=== PATIENT | female | born 1930 | race Caucasian/White ===

== ENCOUNTER 2016-07-04 01:29 | Inpatient (IN) | payer MEDICARE, MEDICAID ==
[2016-07-04] MEDS ORDERED: IOPAMIDOL 370 (76%) 100 ML VIAL IV ONE (01:30)
[2016-07-04 02:04] LABS: ABSOLUTE NEUTROPHIL COUNT 13.6 K/mm3 (1.8-7.7); BASO % 0.2 % (0.2-1.0); EOS # 0.1 (0.0-0.5); EOS % 0.3 % (0.9-2.9); HEMOGLOBIN 11.1 gm/l (12.0-16.0); IMM NEUT # 0.3 K/mm3 (0-0.2); IMM NEUT% 1.6 % (0-1); LYMPH # 0.6 (1.0-4.8); LYMPH % 3.8 % (15-45); MEAN CORPUSCULAR HGB CONC 32.6 g/dl (33.0-37.0); MEAN PLATELET VOLUME 9.9 fl (7.4-10.4); MONO # 0.8 (0.0-0.8); MONO % 5.5 % (4-12); NEUT % 88.6 % (43-75); PLATELET COUNT 112 K/mm3 (130-400); RED CELL DISTRIBUTION WIDTH 13.5 % (11.5-14.5)
[2016-07-04 02:15] LABS: SPECIFIC GRAVITY 1.015 (1.001-1.030); URINE BILIRUBIN NEGATIVE (NEGATIVE); URINE BLOOD 4+ (NEGATIVE); URINE GLUCOSE (UA) NEGATIVE (NEGATIVE); URINE LEUKOCYTE ESTERASE 1+ (NEGATIVE); URINE NITRITE POSITIVE (NEGATIVE); URINE PROTEIN 1+ (NEGATIVE); URINE UROBILINOGEN NORMAL (0-1 mg/dl)
[2016-07-04 02:19] LABS: URINE APPEARANCE TURBID; URINE COLOR YELLOW
[2016-07-04 02:21] LABS: URINE BACTERIA 4+; URINE RBC >100 /hpf; URINE WBC 40-50 /hpf
[2016-07-04 02:25] LABS: ALB/GLOB RATIO 0.9 (>1.0); ALBUMIN 3.2 gm/dL (3.5-5.7); CALCIUM 9.6 mg/dL (8.6-10.3)
[2016-07-04 02:41] LABS: TOTAL CELLS COUNTED 100
[2016-07-04 02:42] LABS: BAND 8 % (0-10); BASOPHIL 0 % (0-1); EOSINOPHIL 1 % (1-3); LYMPHOCYTE 4 % (15-45); MONOCYTE 3 % (4-12); NEUTROPHILS 84 % (43-75); PLATELET ESTIMATE NORMAL (NORMAL)
[2016-07-04] MEDS ORDERED: SODIUM CHLORIDE 0.9% 1,000 ML ONE (02:49)
[2016-07-04] MEDS ORDERED: LEVOFLOXACIN 750 MG/D5W 150 ML 150 ML IV ONE (02:49)
[2016-07-04] MEDS ORDERED: MENTHOL/CETYLPYRD 1 EACH LOZENGE PO PRN (07:55)
[2016-07-04] MEDS ORDERED: BLISTEX LIPSTICK 1 EACH TP PRN (07:55)
[2016-07-04] MEDS ORDERED: ACETAMINOPHEN 325 MG TABLET PO PRN (07:55)
[2016-07-04] MEDS ORDERED: MAGNESIUM HYDROXIDE 30 ML UDCUP PO PRN (07:55)
[2016-07-04] MEDS ORDERED: SODIUM CHLORIDE 0.9% 100 ML IV PRN (07:55)
[2016-07-04] MEDS ORDERED: ALBUTEROL SULFATE MDI 60 PUFFS/INHALER IH PRN (08:00)
[2016-07-04] MEDS ORDERED: HYDROCODONE/ACETAMINOPHEN 5/325MG TABLET PO PRN (08:00)
--- NOTE | 2016-07-04 08:07 | CT ---
HEAD W/O CON COMPARISON: Head CT without contrast, 02/28/2015 HISTORY: 85-year-old female with frequent falls and a history of dementia. TECHNIQUE: Using a [employer] Aquilion [address] scanner, images were obtained through the head. An automated dose reduction technique was used to minimize patient radiation dose. DOSE INFORMATION: CTDIvol (mGy): 51.70 DLP(mGycm): 928.60 FINDINGS: Mass: None Intracranial Hemorrhage: None Acute Infarction: None Cerebral hemispheres: No change. Marked atrophy. Low-attenuation in the white matter. Basal ganglia: Normal Thalami: No change. Subcentimeter old lacunar infarcts in both thalami. Brainstem: Normal Cerebellum: Normal Ventricles: Ex vacuo enlargement. Basilar cisterns: Normal Corpus callosum: Normal Pituitary fossa: Empty sella. Middle ears and mastoid air cells: Normal Orbits and sinuses: No acute finding. Bilateral aphakia. Skull and scalp: Normal Dural sinuses and vessels: Normal IMPRESSION: 1. No change compared to 02/28/2015. No intracranial hemorrhage or depressed skull fracture. 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 Preliminary report by [facility] radiologist Elsa Narayan MD 07/04/2016 at 03:57
--- NOTE | 2016-07-04 08:10 | CT ---
C-SPINE W/O CON COMPARISON: CT cervical spine, 09/24/2010 HISTORY: Multiple falls. Neck injury. Technique: Using a [employer] Aquilion [address] scanner, images obtained through the cervical spine. An automated dose reduction technique was used to minimize patient radiation dose. Dose information: CTDIvol (mGy) 10.40 DLP(mGycm): 202.60 FINDINGS: Vertebral alignment: Normal. C1-2 alignment: Normal. Craniocervical junction: Normal. Vertebral bodies: No acute finding. Disc marginal osteophytes at C5-6 and C6-7. Intervertebral discs: Narrowing, mild at C4-5 and C5-6, severe at C6-7. Spinal canal: Normal. Facet joints and posterior arches: On the left, facet joint narrowing and osteophytes at C2-3, C3-4, C4-5, and C5-6. On the left, narrowing and osteophytes at C3-4, C4-5, C5-6, and C6-7. Prevertebral soft tissues: Normal Lung apices and superior mediastinum: Normal. Airway: Normal. IMPRESSION: 1. No fracture or dislocation. 2. Multilevel facet osteoarthritis and spondylosis. Preliminary report by [facility] radiologist Elsa Narayan MD, 07/04/2016 at 03:57
--- NOTE | 2016-07-04 08:30 | CT ---
ABD/PELVIS W/ CON, CHEST W/ CON COMPARISON: Pelvis one view 02/28/2015. CT abdomen and pelvis 11/08/2013 HISTORY: Multiple falls. Dementia. Left rib cage pain. Technique: No oral contrast. Intravenous injection 100 mL Isovue 370. Using a [employer] Aquilion [address] scanner, images were obtained through the chest, abdomen, and pelvis. An automated dose reduction technique was used to minimize patient radiation dose. Dose information: CTDIvol (mGy): 11.50 DLP(mGycm): 776.00 FINDINGS (chest with contrast): Lungs: Severe emphysema. In the lateral left upper lobe on axial image 25, 3.8 mm peripheral noncalcified nodule. Trachea and bronchi: Normal. Heart and vessels: Atherosclerotic calcific plaquing of the coronary arteries. Calcific plaquing and elongation of the thoracic aorta. Mediastinum and ashok: Normal. Esophagus: Normal. Pleura and pericardium: Normal. Chest wall and bones: Note chest wall swelling or hematoma. Minimally displaced fracture anterior left rib 6. Decreased mineralization of the bones. Left shoulder replacement with chronic proximal humerus fracture.. FINDINGS (abdomen and pelvis with contrast): Liver: Moderate intrahepatic bile duct dilation. Normal enhancement. Gallbladder: Cholecystectomy. Bile ducts: Chronically dilated extrahepatic bile ducts up to 21 mm, without calcified obstructing stone and no evidence of a mass in the head of the pancreas. Pancreas: Atrophy. Spleen: Normal. Adrenal glands: Normal. Kidneys: No change. Multiple stones in the right renal collecting system, the largest up to 2.3 x 1.5 cm in the right renal pelvis. No obstructive hydronephrosis. Marked atrophy of the left kidney. Ureters: Normal Urinary bladder: Normal. Uterus and adnexa: Hysterectomy. Blood vessels: Severe atherosclerosis of the abdominal aorta and its branches in the abdomen and the pelvis. Lymph nodes: Mildly enlarged retroperitoneal right pericaval lymph nodes at the level of the right kidney, up to 11 mm. Stomach: Normal Duodenum: Normal Small intestine: Normal Appendix: Normal Colon: Normal Abdominal wall and supporting musculature: Normal Bones: No fracture bone destruction. Scoliosis and degenerative changes of the spine. IMPRESSION: 1. Severe emphysema. 2. 3.8 mm peripheral noncalcified nodule in the left upper lobe. No follow-up is recommended. 3. Left shoulder replacement with chronic fracture. 4. Minimally displaced fracture, anterior left ribs 6, acute versus chronic. 5. Chronic moderate to marked intra and extra hepatic biliary dilatation after cholecystectomy. This could be a postoperative finding. Check for laboratory evidence of biliary obstruction. 6. No change in the kidneys, with multiple nonobstructing right renal calculi and atrophy of the left kidney. 7. No change in mildly enlarged right pericaval retroperitoneal lymph node at 11 mm at the level of the right kidney. Preliminary report by [facility] radiologist Elsa Narayan MD 07/04/2016 at 03:57
[2016-07-04] MEDS ORDERED: HYDROCODONE/ACETAMINOPHEN 5/325MG TABLET PO SCH ×2 (09:00→16:30)
[2016-07-04] MEDS ORDERED: PUMP TUBING ONE (09:21)
[2016-07-04] MEDS: SODIUM CHLORIDE 0.9% 1,000 ML IV SCH ×2 (09:27→17:51)
[2016-07-04] MEDS: ASCORBIC ACID 500 MG TABLET PO SCH ×3 (09:27→22:04)
[2016-07-04] MEDS: FERROUS GLUCONATE (38 Fe) 324 MG TABLET PO SCH ×3 (09:27→22:04)
[2016-07-04] MEDS: ASPIRIN (ENTERIC COATED) 81 MG TABLET.EC PO SCH (09:28)
[2016-07-04] MEDS: PREGABALIN 75 MG CAP PO SCH ×3 (09:28→22:04)
[2016-07-04] MEDS: PANTOPRAZOLE 40 MG TABLET DR PO SCH (09:28)
[2016-07-04] MEDS: FLUTICASONE/SALMETEROL 250/50 14 PUFFS/DISK IH SCH ×2 (09:28→22:03)
[2016-07-04] MEDS: DOCUSATE SODIUM 100 MG CAPSULE PO SCH ×2 (09:28→22:05)
[2016-07-04] MEDS ORDERED: IV START KIT ONE (09:50)
--- NOTE | 2016-07-04 10:10 | HP ---
BLAKE URBINA [id number] : 1930 DATE OF ADMISSION: July 04, 2016 IDENTIFICATION: Ms. Urbina is an 85-year-old followed by Dr. Lara. CHIEF COMPLAINT: Fell multiple times. HISTORY OF PRESENT ILLNESS: Patient is a resident of [facility] in [place]. She had several falls yesterday and was found down and unable to get up. She was brought to [facility] Emergency Room where she was found to have a urinary tract infection as well as an acute left sixth rib fracture. Patient is demented and cannot provide much history. History is from the emergency room record and previous records. REVIEW OF SYSTEMS: She is not reliable. Denies chest pain or shortness of breath. Does endorse dysuria and reluctantly states that she may have fallen yesterday. PAST MEDICAL HISTORY: 1. Dementia with behavioral disturbance described as aggressive and argumentative. 2. Chronic obstructive pulmonary disease. 3. Obesity with obstructive sleep apnea and chronic respiratory failure. I believe she requires oxygen when sleeping. 4. Depression. 5. 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 6. Gastroesophageal reflux disease. 7. Hyperlipidemia. 8. Hypertension. 9. Osteoarthritis. 10. Chronic kidney disease stage 3. Baseline creatinine appears to be about 1.1. PAST SURGICAL HISTORY: 1. Right knee arthroscopy in 2005. 2. Bilateral cataract surgeries with subsequent laser treatment. 3. Cholecystectomy in 1981. 4. Humeral head replacement in 1995. 5. Total abdominal hysterectomy and bilateral salpingo-oophorectomy in 1956. 6. Lumbar surgery times two in the . 7. Total left knee arthroplasty in 2007. 8. Total right knee arthroplasty. 9. History of right arm fracture. 10. History of fracture and dislocation of the left arm. 11. Endoscopy in 2011 showing diverticulosis showing mild gastritis and duodenitis. ALLERGIES: REPORTED TO: 1. PENICILLIN. 2. SULFA. 3. CODEINE. MEDICATIONS: 1. Lyrica 75 mg orally three times daily. 2. Omeprazole 20 mg orally twice daily. 3. Lovastatin 40 mg orally nightly. 4. Lidocaine patches one daily. 5. Hydrocortisone 1% cream topically three times daily as needed. 6. Hydrocodone with acetaminophen 5/325 one scheduled twice a day and one every four hours as needed. 7. Advair 250/50 one puff twice daily. 8. Ferrous gluconate 325 mg orally three times daily. 9. Ascorbic acid 500 mg orally three times daily with the iron. 10. Vitamin B12 injections 1000 mcg monthly. 11. Cranberry extract 500 mg daily. 12. Aspirin 81 mg daily. 13. Albuterol inhaler two puffs every three hours as needed. 14. Acetaminophen 650 mg orally every four hours as needed. HABITS: No tobacco or drugs. She does have a prior smoking history but quit over ten years ago. SOCIAL HISTORY: She is but her lives in [place], and she is a resident of the [facility] in [place]. She has a POLST form which indicates DO NOT ATTEMPT RESUSCITATION and limited additional interventions. No artificial nutrition by tube. This was signed by Dr. Lara, July 31, 2013. FAMILY HISTORY: Mother at age 84 of dementia and osteoporosis. Her father of prostate and bladder cancer. She has a child with Marfan's syndrome, child with cervical cancer and asthma, and a child with alcoholism. PHYSICAL EXAMINATION: GENERAL: This is a somewhat uncooperative, disoriented elderly woman. VITAL SIGNS: Temperature 97.8 degrees Fahrenheit, pulse 86, blood pressure 138/78, respiratory rate 20, oxygen saturation 93% on room air. HEENT: Pupils are equal, round and reactive status post cataract surgery. Oropharynx is dry. CHEST: Clear to auscultation but tender to palpation over the left lateral aspect. HEART: Is regular. ABDOMEN: Is soft with suprapubic tenderness. No guarding or rebound. Normal bowel tones. No organomegaly. EXTREMITIES: Moderate peripheral pulses. No cyanosis, clubbing or edema. NEUROLOGIC: Patient is disoriented, moving all extremities equally. LABORATORY DATA: White blood cell count is 15.3, hemoglobin and hematocrit 11.1 and 34.0, platelets 112. Sodium 137, potassium 3.7, chloride 101, CO2 26, BUN 39, creatinine 1.4, glucose 144, alkaline phosphatase is 112, creatinine kinase 533, troponin I is 0.01, albumin is 3.2. Urinalysis specific gravity 1.015, 1+ protein, 4+ blood, positive nitrite, positive leukocyte esterase. Microscopic, greater than 100 red blood cells, 40 to 50 white blood cells, 4+ bacteria. Urine and blood cultures have been set up. RADIOLOGY: 1. CT scan of the head, no intracranial mass, edema or fracture. There is periventricular chronic small vessel ischemic changes and volume loss. 2. CT scan of the cervical spine, no fracture or malalignment. 3. CT scan of the chest, mild to moderate emphysema. Mild lower lung bronchial markings, post left shoulder arthroplasty and left sixth rib fracture. 4. CT abdomen and pelvis, marked intra and extrahepatic biliary dilatation, scoliosis, tortuous aorta, large right renal pelvis stone. ASSESSMENT: Ms. Urbina is a demented 85-year-old who presents with urinary tract infection presumed bacterial. She has severe sepsis secondary to the urinary tract infection with acute kidney injury and acute mild rhabdomyolysis. She has nephrolithiasis which likely contributes to her history of recurrent urinary tract infections. She has chronic obstructive pulmonary disease not currently requiring oxygen but also obesity with obstructive sleep apnea and obesity hypoventilation and chronic respiratory failure requiring oxygen with sleep. She has diabetes complicated by chronic kidney disease and peripheral neuropathy. PLAN: 1. Admit to medical/surgical floor. 2. Treatment with intravenous levofloxacin for the urinary tract infection. 3. Fluid hydration and follow renal function and CPK. 4. Diabetic diet and check blood sugars before meals and at bedtime. 5. DO NOT RESUSCITATE status. 6. Venous thrombosis prophylaxis with mechanical means. Pharmacologic is contraindicated with her thrombocytopenia. 7. Further care as indicated by clinical course.
[2016-07-04] MEDS: HYDROCODONE/ACETAMINOPHEN 5/325MG TABLET PO PRN (16:43)
[2016-07-04 16:49] VITALS: BMI 27.3
[2016-07-04] MEDS: LOVASTATIN 20 MG TABLET PO SCH (19:37)
[2016-07-04] MEDS ORDERED: CEFTRIAXONE 1 GRAM DUPLEX 50 ML IV ONE (21:50)
[2016-07-04] MEDS: CEFTRIAXONE 1 GRAM DUPLEX 1 G in Premix (D5W) 50 ml 1 EACH IV SCH (22:03)
[2016-07-05] MEDS: SODIUM CHLORIDE 0.9% 1,000 ML IV SCH ×2 (02:38→09:04)
[2016-07-05] MEDS: HYDROCODONE/ACETAMINOPHEN 5/325MG TABLET PO PRN (03:01)
[2016-07-05 05:35] LABS: ABSOLUTE NEUTROPHIL COUNT 6.8 K/mm3 (1.8-7.7); BASO % 0.3 % (0.2-1.0); EOS # 0.1 (0.0-0.5); HEMATOCRIT 29.7 % (37.0-47.0); HEMOGLOBIN 9.6 gm/l (12.0-16.0); IMM NEUT # 0.1 K/mm3 (0-0.2); IMM NEUT% 0.6 % (0-1); LYMPH # 0.5 (1.0-4.8); LYMPH % 6.3 % (15-45); MEAN CELL VOLUME 95.2 fl (81.0-99.0); MEAN CORPUSCULAR HEMOGLOBIN 30.8 pg (27.0-31.0); MEAN CORPUSCULAR HGB CONC 32.3 g/dl (33.0-37.0); MEAN PLATELET VOLUME 10.4 fl (7.4-10.4); MONO # 0.4 (0.0-0.8); MONO % 5.1 % (4-12); NEUT % 86.7 % (43-75); PLATELET COUNT 106 K/mm3 (130-400); RED CELL DISTRIBUTION WIDTH 13.4 % (11.5-14.5)
[2016-07-05 05:56] LABS: CALCIUM 8.8 mg/dL (8.6-10.3)
[2016-07-05 06:57] LABS: BAND 7 % (0-10); BASOPHIL 0 % (0-1); EOSINOPHIL 3 % (1-3); LYMPHOCYTE 4 % (15-45); MONOCYTE 2 % (4-12); NEUTROPHILS 84 % (43-75); PLATELET ESTIMATE DECREASED (NORMAL); TOTAL CELLS COUNTED 100
[2016-07-05] MEDS: FERROUS GLUCONATE (38 Fe) 324 MG TABLET PO SCH ×3 (09:03→21:32)
[2016-07-05] MEDS: PANTOPRAZOLE 40 MG TABLET DR PO SCH (09:03)
[2016-07-05] MEDS: ASPIRIN (ENTERIC COATED) 81 MG TABLET.EC PO SCH (09:04)
[2016-07-05] MEDS: FLUTICASONE/SALMETEROL 250/50 14 PUFFS/DISK IH SCH ×2 (09:04→21:34)
[2016-07-05] MEDS: PREGABALIN 75 MG CAP PO SCH ×3 (09:04→21:33)
[2016-07-05] MEDS: ASCORBIC ACID 500 MG TABLET PO SCH ×3 (09:04→21:33)
[2016-07-05] MEDS: DOCUSATE SODIUM 100 MG CAPSULE PO SCH ×2 (09:04→21:33)
--- NOTE | 2016-07-05 13:28 | PDOC43 ---
- Subjective Chief Complaint: GLF, dementia, recurrent UTI Feels good this AM. No c/o's. Subjective: Reports Pain Tolerable, Reports Tolerating Diet Well, Denies Shortness of Breath, Denies Cough, Denies Chest Pain, Denies Abdominal Pain, Denies Nausea, Denies Vomiting, Denies Fever, Denies Chills - Objective Vital Signs Temperature 97.7 F 07/05/16 07:29 Pulse Rate 76 07/05/16 07:29 Respiratory Rate 16 07/05/16 07:29 Blood Pressure 116/67 07/05/16 07:29 O2 Saturation by Pulse Oximetry 91 07/05/16 07:29 Oxygen Delivery Method Room Air Oxygen Flow Rate 0 Intake and Output 07/04/16 07/05/16 07/06/16 06:59 06:59 06:59 Intake Total 1611 Output Total 881 350 Balance 730 -350 General: Alert, Cooperative, No Acute Distress HEENT: Atraumatic Lungs: Clear to Auscultation Bilaterally Abdomen: Soft, Normal Bowel Sounds, Non-Distended, No Tenderness Extremities: Normal Pulses, No Edema Laboratory 07/05/16 05:15 07/05/16 05:15 Microbiology 07/04/16 02:00 Urine,Catheterized Urine Culture - Final Escherichia Coli 07/04/16 07/05/16 01:54 05:15 Creatine Kinase 533 H 296 H Current Medications: Current meds reviewed in EMR. - Problems: Assessment/Plan (1) UTI (lower urinary tract infection) Status: AcuteAssessment/Plan: POA, recurrent associated with large R sided renal stone. E. coli resistant to FQ's and amp on cx. Initial blood cx with gnr's- final pending. Changed abx to Rocephin on PM 2. Initial admit note indicated sepsis, but pt did not meet criteria for sepsis. Con't current tx. (2) Fall Status: AcuteAssessment/Plan: Multiple GLF's recently. L 6th rib fx noted at admit. PT/OT to see. Supportive care. (3) Rhabdomyolysis Status: AcuteAssessment/Plan: Mild, presumed related to falls above. (4) Dementia Qualifiers: Dementia type: unspecified type Dementia behavioral disturbance: with behavioral disturbance Qualifier Code: (F03.91) Unspecified dementia with behavioral disturbance Status: ChronicAssessment/Plan: Long standing with behavioral disturbance as per chart. Supportive care. (5) -Diabetes mellitus type 2 Status: ChronicAssessment/Plan: Stable. Con't current tx. (6) CKD (chronic kidney disease) stage 3, GFR 30-59 ml/min Status: ChronicAssessment/Plan: Appears at baseline. (7) COPD (chronic obstructive pulmonary disease) Qualifiers: COPD type: unspecified COPD Qualifier Code: (J44.9) Chronic obstructive pulmonary disease, unspecified Status: ChronicAssessment/Plan: With chronic resp failure requiring O2 at [facility] at baseline. VTE Prophylaxis: Mechanical only d/t thrombocytopenia and frequent falls.
[2016-07-05] MEDS ORDERED: FLUTICASONE/SALMETEROL 250/50 14 PUFFS/DISK IH SCH (14:15)
[2016-07-05] MEDS: LOVASTATIN 20 MG TABLET PO SCH (21:33)
[2016-07-05] MEDS: CEFTRIAXONE 1 GRAM DUPLEX 1 G in Premix (D5W) 50 ml 1 EACH IV SCH (21:34)
[2016-07-06] MEDS ORDERED: LEVOFLOXACIN 750 MG/D5W 150 ML 750 MG in Premix (D5W) 150 ml Bag 1 EACH IV SCH (03:00)
[2016-07-06 05:46] LABS: HEMATOCRIT 31.5 % (37.0-47.0); HEMOGLOBIN 10.1 gm/l (12.0-16.0); MEAN CELL VOLUME 94.9 fl (81.0-99.0); MEAN CORPUSCULAR HEMOGLOBIN 30.4 pg (27.0-31.0); MEAN CORPUSCULAR HGB CONC 32.1 g/dl (33.0-37.0); RED CELL DISTRIBUTION WIDTH 13.6 % (11.5-14.5)
[2016-07-06 06:15] LABS: ALB/GLOB RATIO 0.8 (>1.0); ALBUMIN 2.6 gm/dL (3.5-5.7)
[2016-07-06] MEDS: ASCORBIC ACID 500 MG TABLET PO SCH ×2 (08:02→15:11)
[2016-07-06] MEDS: FERROUS GLUCONATE (38 Fe) 324 MG TABLET PO SCH ×2 (08:02→15:11)
[2016-07-06] MEDS: FLUTICASONE/SALMETEROL 250/50 14 PUFFS/DISK IH SCH (08:03)
[2016-07-06] MEDS: HYDROCODONE/ACETAMINOPHEN 5/325MG TABLET PO PRN ×2 (08:03→15:16)
[2016-07-06] MEDS: DOCUSATE SODIUM 100 MG CAPSULE PO SCH (08:03)
[2016-07-06] MEDS: ASPIRIN (ENTERIC COATED) 81 MG TABLET.EC PO SCH (08:03)
[2016-07-06] MEDS: PREGABALIN 75 MG CAP PO SCH ×2 (08:03→15:11)
[2016-07-06] MEDS: PANTOPRAZOLE 40 MG TABLET DR PO SCH (08:03)
--- NOTE | 2016-07-06 11:46 | DS ---
Christine Urbina ADMIT DATE: 07/04/2016 DISCHARGE DATE: 07/06/2016 ADMISSION DIAGNOSES: 1. Urinary tract infection, recurrent associated with right sided large nephrolithiasis. 2. Advanced dementia with behavior disturbances at baseline. 3. Chronic obstructive pulmonary disease. 4. Chronic kidney disease stage III. 5. Frequent falls. 6. Mild rhabdomyolysis. 7. Initially diagnosed with severe sepsis, however, in retrospect her creatinine was at baseline at admit and she had no other criteria consistent with sepsis. She was therefore, felt to have had a simple recurrent urinary tract infection associated with nephrolithiasis without sepsis at admit. DISCHARGE DIAGNOSES: 1. Urinary tract infection, recurrent associated with right sided large nephrolithiasis. 2. Advanced dementia with behavior disturbances at baseline. 3. Chronic obstructive pulmonary disease. 4. Chronic kidney disease stage III. 5. Frequent falls. 6. Mild rhabdomyolysis. 7. Initially diagnosed with severe sepsis, however, in retrospect her creatinine was at baseline at admit and she had no other criteria consistent with sepsis. She was therefore, felt to have had a simple recurrent urinary tract infection associated with nephrolithiasis without sepsis at admit. Urine culture grew out E-coli resistant to fluoroquinolones and ampicillin. In reviewing her chart she has had recurrent urinary tract infections with the basically same bacteria for the last 2 to 3 years. ADMIT HISTORY AND PHYSICAL: Please see Dr. Machado's note for details. Briefly, Ms. Urbina is an 85-year-old female with advanced dementia. Resident at [facility]. She has had a history of frequent falls and had increasing falls in the day or two prior to this admission. She was brought to the emergency room and found to have recurrent urinary tract infection. They did CT her head, C-spine, chest, and abdomen and at this point was noted to have a large right sided nephrolithiasis, it is felt this most likely is acting as a nidus for her recurrent urinary tract infections. She was admitted to the hospitalist service for further treatment. HOSPITAL COURSE: She was admitted and treated supportively with IV fluid rehydration and IV antibiotics with initial Levaquin. Her urine cultures came back showing E-coli resistant to fluoroquinolones and she was subsequently transitioned over to Rocephin. By day of discharge she was back to her baseline and feeling well. There was a concern given the recurrent nature of these urinary tract infections in the context of a known nephrolithiasis. She was been referred in the past to Dr. Arrieta who declined any further workup with her. At this point, I am going to discharge her on a two weeks course of Keflex to her primary care physician and decision will need to be made whether to just continue her on prophylactic antibiotics or possibly refer her to a different urologist to get a second opinion on possible interventions due to her recurrent urinary tract infections associated with nephrolithiasis. DISCHARGE MEDICATIONS: Keflex 500 mg by mouth twice daily x14 days. All other medications as prior to admit as follows: 1. Lidocaine patch as needed. 2. Tylenol as needed. 3. Albuterol MDI every 3 hours as needed. 4. Cortisone cream three times daily as needed. 5. Advair 250/50 inhaled twice daily. 6. Aspirin 81 mg by mouth daily. 7. Vitamin C 500 mg by mouth three times daily. 8. Vitamin B12 1000 mcg injected every month. 9. Lovastatin 40 mg by mouth every evening. 10. Omeprazole 20 mg by mouth twice daily. 11. Lyrica 75 mg by mouth twice daily. 12. [place] one tab every 4 hours as needed. 13. Cranberry 500 mg by mouth daily. 14. Ferrous gluconate 325 mg by mouth twice daily. DISCHARGE FOLLOW UP: Will be with Lorie Brandon in Dr. Lara's office next week again to review extending her antibiotic to include prophylactic antibiotics versus referral to new urologist for a second opinion in how to manage her stone and recurrent E-coli urinary tract infections. JOB: [id number] CC: Lorie Brandon, KIRBY Lara
[2016-07-06 16:46] VITALS: BP 118/57
== END 2016-07-06 18:53 | DRG 690 ==
LOC: ED 01:29 → MS 04:25
PROVIDERS: ADMIT Family Medicine; ATTEND Family Medicine
DX: N39.0 Urinary tract infection, site not specified (principal); M62.82 Rhabdomyolysis; E11.9 Type 2 diabetes mellitus without complications; Z66 Do not resuscitate; M19.90 Unspecified osteoarthritis, unspecified site; M47.9 Spondylosis, unspecified; N20.0 Calculus of kidney; J44.9 Chronic obstructive pulmonary disease, unspecified; E11.22 Type 2 diabetes mellitus with diabetic chronic kidney disease; N18.3 Chronic kidney disease, stage 3 (moderate); Z91.81 History of falling

== ENCOUNTER 2016-08-04 01:57 | Emergency (ER) | payer OTHER ==
[2016-08-04] MEDS ORDERED: HYDROCODONE/ACETAMINOPHEN 5/325MG TABLET ONE (02:39)
--- NOTE | 2016-08-04 07:47 | RAD ---
Exam: Pelvis and two-view right hip COMPARISON: 03/05/2015, 03/02/2012 INDICATION: Right hip pain, multiple recent falls. FINDINGS: An AP view of the pelvis and AP and frog-leg lateral views of the right hip were obtained. The AP view of the hip is limited due to motion artifact. There is diffuse bony osteopenia, which limits evaluation for nondisplaced fracture. Given those limitations, no acute displaced fracture is identified within the pelvis or right hip. Hip joint spaces are preserved and symmetric. Femoral heads are normal in contour. Degenerative changes are seen within the lumbar spine. IMPRESSION: No acute displaced fracture within the pelvis or right hip.
== END 2016-08-04 03:52 | disposition home or self-care (01) ==
LOC: ED 01:57
DX: S70.01XA Contusion of right hip, initial encounter (principal); E11.9 Type 2 diabetes mellitus without complications; J44.9 Chronic obstructive pulmonary disease, unspecified; J45.909 Unspecified asthma, uncomplicated; Z99.81 Dependence on supplemental oxygen; M19.90 Unspecified osteoarthritis, unspecified site; I10 Essential (primary) hypertension; W19.XXXA Unspecified fall, initial encounter; Y93.9 Activity, unspecified; Y92.9 Unspecified place or not applicable
CPT/HCPCS: 73502; 99283 ×2; A9270